=== PATIENT | female | born 1980 | race Hispanic/Latino ===

== ENCOUNTER 2020-06-12 16:55 | Emergency (ER) | payer OTHER ==
[2020-06-12] MEDS ORDERED: Bacitracin 1 PK ONE (17:26)
[2020-06-12] MEDS ORDERED: Adacel (T-DAP) 0.5 ML SYRINGE ONE (17:27)
[2020-06-12] MEDS ORDERED: Rabies Vaccine Human 2.5 UNITS VIAL IM ONE (18:00)
== END 2020-06-12 19:10 | disposition home or self-care (01) ==
LOC: ERS 16:55
DX: S81.852A Open bite, left lower leg, initial encounter (principal); W54.0XXA Bitten by dog, initial encounter
CPT/HCPCS: 90376; 90471; 90472; 90675; 90715; 96372; 99283

== ENCOUNTER 2020-06-16 19:26 | Emergency (ER) | payer OTHER ==
[2020-06-16] MEDS ORDERED: Rabies Vaccine Human 2.5 UNITS VIAL IM ONE (20:00)
== END 2020-06-16 20:00 | disposition home or self-care (01) ==
LOC: ER/OP 19:26
DX: S61.451D Open bite of right hand, subsequent encounter (principal); Z23 Encounter for immunization
CPT/HCPCS: 90471; 90675

== ENCOUNTER → 2020-06-19 | Day surgery (SDC) | payer OTHER ==
[~2020-06-19] MED LIST: Rabies Vaccine Human 2.5 UNITS VIAL IM ONE
== END ==
LOC: ER/OP 19:28
PROVIDERS: ATTEND Emergency Medicine
DX: Z29.14 Encounter for prophylactic rabies immune globulin (principal)
CPT/HCPCS: 90471; 90675